=== PATIENT | female | born 1940 | race Caucasian/White ===

== ENCOUNTER 2019-06-05 05:02 | Day surgery (SDC) | payer MEDICARE, OTHER ==
[2019-06-04 12:33] LABS: HEMATOCRIT 40.1 % (36.0-48.0); HEMOGLOBIN 13.1 g/dL (12-16); MCH 30.2 pg (26.0-34.0); MCHC 32.7 g/dL (31.0-37.0); MCV 92.4 fL (80.0-100.0); MEAN PLATELET VOLUME 10.2 fL (7.4-10.4); RBC 4.34 10x6/uL (4.00-5.40); RDW 15.8 % (11.5-14.5); WBC 4.8 10x3/uL (4.8-10.8)
[2019-06-04 12:50] LABS: ANION GAP 8.7 mmol/L (8-16); CALCIUM 9.1 mg/dL (8.5-10.1); CARBON DIOXIDE 33.4 mmol/L (21.0-32.0); CREATININE - SERUM 0.8 mg/dL (0.6-1.3); POTASSIUM - SERUM 4.1 mmol/L (3.5-5.1)
[~2019-06-05] VITALS: Ht 162.6 cm; Wt 68.0 kg
--- NOTE | ~2019-06-05 | OP ---
PATIENT NAME: SAMRA DOMINGUEZ MEDICAL RECORD: [id number] :40 LOCATION:D.OPS ADMISSION DATE: SURGEON: ARMANDO LOMELI DPM DATE OF OPERATION: 06/05/2019 PREOPERATIVE DIAGNOSES: 1. 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 POSTOPERATIVE DIAGNOSES: 1. 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 PROCEDURES: 1. Left ankle arthroscopy. 2. Resection of bone left dorsal talus. 3. Resection of bone left dorsal navicular. HEMOSTASIS: Left thigh tourniquet at 350 mmHg. ANESTHESIA: General with infiltration of local anesthetic around the ankle, 20 cc total. PREOPERATIVE DETAILS: The patient was taken to the OR and placed on the operating table in a supine position. This was followed by induction of general anesthesia and infiltration of local anesthetic. The left extremity was then prepped and draped in the usual aseptic technique followed by exsanguination and inflation of tourniquet. PROCEDURE #1: Left ankle arthroscopy. A 15-blade was used to create a small stab incision over the anterior lateral shoulder of the left ankle. The incision was deepened down bluntly with a hemostat. The joint was punctured with a trocar and cannula and the camera was introduced in the lateral portal. 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 There was some adhesive capsulitis as well. Examination of the cartilaginous surface of the talar dome showed that it was in good repair with only minor arthritic changes to the talar dome. Evaluation of the lateral gutter did not show any pathology. A small stab incision was made over the medial anterior shoulder of the anterior ankle. Dissection was carried down bluntly with a hemostat. The joint was punctured with a trocar and the synovial shaver was introduced. At this time, the chondromalacia was resected off the distal anterior tip of the fibula as well as removal of all the adhesive capsulitis. The portals were switched with the camera being introduced medially and the synovial shaver laterally and continued debridement did occur. Inspection of the medial gutter showed no pathology. The camera and the synovial shaver were then removed. PROCEDURE #2: Resection of enlarged bone dorsal right talus. The incision as described in #1 on the medial anterior shoulder was then elongated distally. Dissection was carried down to the dorsal navicular and dorsal neck of the talus the anterior tibialis tendon was retracted medially in the wound. A capsulotomy was performed over the top of the talonavicular joint exposing the significant spurring and enlargement of bone and dorsal talus, which did cause impingement OPERATIVE REPORT [id number] SAMRA DOMINGUEZ of the anterior ankle joint. A rongeur and bone rasp were used to resect the bone from the dorsal aspect of the talus and smooth it. PROCEDURE #3: Removal of enlarged bone, dorsal aspect of the navicular. Utilizing the incision as described in #2, a rongeur bone rasp were used to remove the large dorsal navicular. The wound was flushed. The deep tissue was reapproximated with 2-0 Vicryl, the extensor retinaculum was repaired with 2-0 Vicryl. The subcutaneous tissue was reapproximated with 4-0 Rapide and the skin was closed with 4-0 Rapide in a subcuticular technique followed by Dermabond. The lateral incision was also closed in a simple interrupted technique with 4-0 Rapide followed by Dermabond, Adaptic, 4 x 4 and Conform were used to dress the wound followed by application of a modified Saleh compression dressing. The tourniquet was deflated. POSTOPERATIVE DETAILS: The patient tolerated the procedure well and left the OR with vital signs stable and vascular status at preoperative levels. The patient was transported to recovery per anesthesia in stable condition. TRANSINT:[id number] Voice Confirmation ID: [id number] DOCUMENT ID: [id number] ARMANDO LOMELI DPM CC: [id number] DICTATION DATE: 06/05/1939 MIME ARTIST: 06/05/19 1035 [facility] [address] [place] [address]
[~2019-06-05 05:02] MED LIST: ALDACTONE25 MG PO; BUMETANIDE0.5 MG PO; CENTRUM SILVER1 EAC3 PO; CO Q-1030 MG PO; CYMBALTA60 MG PO; DIGESTIVE ENZYMES PO; ENTRESTO 49 MG1 EACH PO; FEXOFENADINE HC60 MG PO; LIPITOR10 MG PO; MAGNESIUM PO; MUCINEX600 MG PO; PREVACID30 MG PO; RESVERATROL PO; SINGULAIR10 MG PO; SYNTHROID50 MCG PO; TOPROL XL25 MG PO; TRAZODONE HCL150 MG PO; TROSPIUM CHLORI20 MG PO; [UNRECOGNIZED DRUG - OTHER] PO; [UNRECOGNIZED DRUG - OTHER] PO; [UNRECOGNIZED DRUG - OTHER] PO; [UNRECOGNIZED DRUG - OTHER] PO
[2019-06-05 05:49] VITALS: BP 120/64; Ht 162.6 cm; Wt 68.0 kg
== END 2019-06-05 10:35 | disposition home or self-care (01) ==
LOC: D.OPS 05:02 → D.PAN 10:00 → D.OPS 10:35 → D.PAN 11:00 → D.OPS 11:00
PROVIDERS: Anesthesiology; ATTEND Podiatrist
DX: M19.072 Primary osteoarthritis, left ankle and foot (principal); Q79.9 Congenital malformation of musculoskeletal system, unspecified; I10 Essential (primary) hypertension